=== PATIENT | male | born 1960 | race Caucasian/White ===

== ENCOUNTER → 2018-08-20 | Outpatient (CLI) | payer BC ==
--- NOTE | 2018-08-20 09:15 | KCIC ---
MRI Lumbar Spine without contrast History: Loss of sensation of the left lower extremity, previous surgery, new onset of left leg weakness Technique: Multiplanar, multi sequential noncontrast MR imaging was performed of the lumbar spine. Contrast: None Comparison: None Findings: Other than multilevel Schmorl's nodes, lumbar vertebral body stature is overall maintained. There is minimal grade 1 anterior spondylolisthesis L2-L3. Conus terminates at T12-L1. There is nonspecific edema of the posterior subcutaneous fat of the lower back. There is small hemangioma of L5. There is moderate degenerative disc disease at L2-3 and L4-5 and to lesser degree L3-4 and L5-S1, minimally at L1-L2. There is no significant marrow edema. There are posterior annular tears L2-3 to L4-5. There is mild lumbar levoscoliosis. T11-12: There is minimal disc osteophyte complex. Spinal canal is overall adequate. T12-L1: Neural foramina and spinal canal are adequate. L1-L2: Neural foramina and spinal canal are adequate. L2-L3: There is minimal disc osteophyte complex and superimposed shallow broad protrusion more eccentric to the right lateral recess. There is mild indentation upon the ventral thecal sac greater in the far right lateral recess, spinal canal overall adequate. Neural foramina are adequate. Disc osteophyte complex is near the extraforaminal right L2 nerve root without significant displacement. L3-L4: There is disc osteophyte complex and bulge. There is minimal narrowing of the far left lateral recess. There is very mild narrowing of the inferior left neural foramen by disc osteophyte complex, right neural foramen overall adequate. L4-L5: There is right laminectomy defect. There is broad posterior bulge, mild indentation upon the ventral thecal sac. There is minimal narrowing of the far lateral recesses greater on the left near the descending L5 nerve roots without displacement. There is mild narrowing of the left neural foramen, right neural foramen overall adequate. L5-S1: Spinal canal is overall adequate. There is negligible bulge. There is mild narrowing of the left neural foramen, right neural foramen adequate. Impression: 1. There is multilevel moderate degenerative disc disease greatest L2-3 and L4-5. There is multilevel mild spondylosis. There is no significant lumbar spinal stenosis, mild indentation upon the ventral thecal sac greater in the lateral recesses such as at L4-5, the left lateral recess at L3-4, and the right lateral recess at L2-3. There is minimal neural foramina compromise such as on the left L3-4 to L5-S1. There is mild lumbar levoscoliosis. There is minimal grade 1 anterior spondylolisthesis L2-3. Electronically signed by: Pablito Radford MD (08/20/2018 9:11 AM) [id number]
== END | disposition home or self-care (01) ==
LOC: KCIC MRI 07:39
PROVIDERS: ATTEND Family Medicine
DX: M51.17 Intervertebral disc disorders with radiculopathy, lumbosacral region (principal); M43.16 Spondylolisthesis, lumbar region; M85.88 Other specified disorders of bone density and structure, other site
CPT/HCPCS: 72148

== ENCOUNTER → 2019-11-01 | Outpatient (CLI) | payer BC ==
--- NOTE | 2019-11-02 13:30 | KCIC ---
STUDY: MRI of the right knee without contrast INDICATION: Knee pain. COMPARISON: None. TECHNIQUE: Multiplanar MR imaging of the right knee performed without the use of intravenous or intra-articular contrast. FINDINGS: Menisci: Oblique undersurface tear of the medial meniscus body and posterior horn and extending into the posterior root. The lateral meniscus is intact. Cruciate ligaments: Intact. Collateral ligaments: Intact. Tendons: Mild distal quadriceps tendinosis. Cartilage: Patellofemoral: Multifocal patellar chondrosis with areas of high-grade involvement. Associated subchondral edema at scattered locations as well as subchondral cystic change at the cephalad aspect of the median ridge. More mild chondrosis seen at the trochlear groove on image 14 series 3. Lateral compartment: No full-thickness defect. Medial compartment: Chondrosis with areas of high-grade involvement and a probable component of delamination at the weightbearing medial femoral condyle. Probable matching chondral thinning at the weightbearing medial tibial plateau. Bones: No acute fracture or aggressive marrow signal abnormality. Miscellaneous: No significant knee joint effusion. Small Alexandra's cyst. IMPRESSION: 1. Oblique undersurface tearing at the medial meniscus body and posterior horn with propagation into the posterior root. 2. Mild distal quadriceps tendinosis. 3. High-grade chondrosis, as detailed above, involving the patella and weightbearing medial femoral condyle. Less pronounced chondrosis at the weightbearing medial tibial plateau and trochlear groove. 4. Small Alexandra's cyst. Electronically signed by: NIEVES CASPER MD (11/02/2019 1:28 PM) [id number]
== END | disposition home or self-care (01) ==
LOC: KCIC MRI 15:30
PROVIDERS: ATTEND Family Medicine
DX: S83.241A Other tear of medial meniscus, current injury, right knee, initial encounter (principal); S83.251A Bucket-handle tear of lateral meniscus, current injury, right knee, initial encounter; M71.21 Synovial cyst of popliteal space [Baker], right knee; X58.XXXA Exposure to other specified factors, initial encounter; Y93.89 Activity, other specified; Y92.89 Other specified places as the place of occurrence of the external cause; Y99.8 Other external cause status
CPT/HCPCS: 73721

== ENCOUNTER → 2019-11-01 | Outpatient (CLI) | payer BC ==
--- NOTE | 2019-11-02 14:03 | KCIC ---
Study: MRI left ankle without contrast INDICATION: Chronic heel pain. COMPARISON: None. TECHNIQUE: Multiplanar MR imaging of the left ankle performed without the use of intravenous or intra-articular contrast. FINDINGS: Bones/cartilage: Marrow edema along the plantar margin of the calcaneus particularly at the plantar fascia origin. Plantar calcaneal spur as well as a very small Achilles insertion enthesophyte. No acute fracture. No subchondral marrow edema at the ankle to suggest a high-grade chondral defect. Degenerative changes seen at the first TMT joint. Ligaments: Small amount of fluid signal at the distal syndesmosis favored related to the presence of a joint effusion. The syndesmotic ligaments are intact. Intact ATFL, CFL and PTFL. Potential prior injury of the deep deltoid ligament given absence of a typical striated pattern. No acute injury. No acute injury of the superficial deltoid ligament components. Thickened spring ligament. Grossly intact Lisfranc ligament complex such as seen on image 22 series 6. Musculotendinous: Proteus longus tendinosis distal to the lateral malleolus. The peroneus brevis appears to be intact. Intact PTT, FDL and FHL. Mild distal Achilles tendinosis without tear. Intact extensor tendons. Muscular bulk and signal is maintained. Sinus Tarsi: Edema signal seen on the sagittal STIR sequence but mostly maintained fat signal at the sinus tarsi on the sagittal T1 sequence. Tarsal tunnel: No space-occupying mass or accessory muscle. Plantar fascia: Findings in keeping with active plantar fasciitis with thickening and increased signal within the central band at the calcaneal origin as well as marrow edema of the adjacent calcaneus no high-grade tear. Miscellaneous: Edema of Kager's fat pad. Probable Achilles paratenonitis. Small amount of retrocalcaneal bursal fluid. Scattered small volume joint fluid. Scattered subcutaneous edema at the ankle and involving the visualized foot. IMPRESSION: 1. Findings in keeping with active plantar fasciitis with thickening and heterogeneous signal of the proximal aspect of the central band without focal tear. Corresponding marrow edema of the adjacent calcaneus and a plantar calcaneal spur. 2. Mild distal Achilles tendinosis. There is edema of Kager's fat and probable mild paratenonitis. Small amount of fluid within the retrocalcaneal bursa but without the degree of fluid distention that would suggest bursitis. 3. Potential mild remote injury of the deep deltoid ligament. The spring ligament is mildly thickened but intact. No acute ligamentous injury at the ankle. 4. Mild peroneous longus tendinosis distal to the lateral malleolus. Electronically signed by: NIEVES CASPER MD (11/02/2019 1:59 PM) [id number]
== END | disposition home or self-care (01) ==
LOC: KCIC MRI 14:52
PROVIDERS: ATTEND Nurse Practitioner Family
DX: M72.2 Plantar fascial fibromatosis (principal); M77.32 Calcaneal spur, left foot; M76.62 Achilles tendinitis, left leg; G89.29 Other chronic pain; M79.89 Other specified soft tissue disorders; M25.472 Effusion, left ankle; E65 Localized adiposity
CPT/HCPCS: 73718